=== PATIENT | female | born 1940 | race African-American/Black ===

== ENCOUNTER 2017-08-27 21:39 | Inpatient (IN) ==
[2017-08-27] MEDS ORDERED: ASPIRIN 325 MG TABLET PO STA (23:09)
[2017-08-27] MEDS ORDERED: SODIUM CHLORIDE 0.9% 500 ML IV STA (23:09)
[2017-08-27] MEDS ORDERED: ONDANSETRON 4 MG/2 ML VIAL IV STA (23:09)
[2017-08-28] MEDS ORDERED: ASPIRIN 325 MG TABLET ONE (00:06)
[2017-08-28] MEDS ORDERED: ONDANSETRON 4 MG/2 ML VIAL ONE ×2 (00:06→01:15)
[2017-08-28 00:09] LABS: Basophils % 0.3 % (0.0-0.8); Eosinophils # 0.1 10*3/uL (0.0-0.87); Eosinophils % 0.5 % (0.00-10.9); Hematocrit 31.5 VOL% (35.7-47.0); Hemoglobin 10.9 GM/DL (12.0-16.0); Immature Granulocytes % 3.1 %; Immature Granulocytes Absolute 0.39 #; Lymphocytes # 0.7 10*3/uL (1.4-4.0); Lymphocytes % 5.5 % (21.3-54.2); Mean Corpuscular HGB Conc 34.6 GM/DL (32-36); Mean Corpuscular Hemoglobin 28 PG (27-34); Mean Corpuscular Volume 79.3 FL (87-102); Mean Platelet Volume 11.3 FL (9.6-12.0); Monocytes # 0.3 10*3/uL (0.11-0.8); Monocytes % 2.5 % (1.7-12.7); NRBC # 0.02 10*3/uL; Neutrophils # 11.2 10*3/uL (1.4-7.4); Neutrophils % 88.1 % (38.7-73.9); Platelet Count 314 T/CUMM (130-400); Red Blood Count 3.97 MC/CUMM (3.8-5.5); Red Cell Distribution Width 13.5 % (9.3-17.3); White Blood Count 12.8 T/CUMM (4-12)
[2017-08-28 00:18] LABS: PT Patient Result 10.8 SECS; Partial Thromboplastin Time 30.1 SECS (0-40)
[2017-08-28 00:27] LABS: Ammonia < 10 UMOL/L (11-32)
[2017-08-28 00:31] LABS: Alanine Aminotransferase 35 U/L (13-56); Albumin 1.8 G/DL (3.4-5.0); Alkaline Phosphatase 188 U/L (45-117); Aspartate Amino Transferase 53 U/L (0-37); Blood Urea Nitrogen 56 MG/DL (7-18); Calcium 8.6 MG/DL (8.5-10.1); Glucose 386 MG/DL (74-106); Osmolality,Calculated 295.5 MOS/KG (273-304); Sodium 132 MMOL/L (136-145); Total Protein 5.7 G/DL (6.4-8.3); Troponin I Only < 0.015 NG/ML (0.00-0.045)
[2017-08-28 00:32] LABS: Lactic Acid 2.1 MMOL/L (0.4-2.0)
[2017-08-28] MEDS ORDERED: ONDANSETRON 4 MG/2 ML VIAL IV STA (00:59)
[2017-08-28] MEDS ORDERED: MORPHINE 2 MG/1 ML SYRINGE IV STA ×2 (00:59→09:30)
[2017-08-28] MEDS ORDERED: POTASSIUM CHLORIDE 20 MEQ TABLET PO STA (01:00)
[2017-08-28] MEDS ORDERED: MORPHINE 2 MG/1 ML SYRINGE ONE (01:15)
[2017-08-28] MEDS ORDERED: POTASSIUM CHLORIDE 20 MEQ TABLET PO ONE (01:15)
[2017-08-28 01:52] LABS: Band Neutrophils 45 % (0-10); Eosinophils 1 % (0-10); Lymphocytes 11 % (20-55); Segmented Neutrophils 37 % (50-85); Total Cells Counted 100
[2017-08-28 02:08] LABS: Barbiturates Screen,Urine Negative (Negative); Benzodiazepines Screen,Urine Negative (Negative); Cannabinoid Screen,Urine Negative (Negative); Opiate Screen,Urine Positive (Negative); Phencyclidine Screen,Urine Negative (Negative)
[2017-08-28 02:14] LABS: Apearance,Urine CLOUDY (Clear); Bacteria,Urine Many /HPF (Few); Bilirubin,Urine Negative (Negative); Blood, Urine Negative (Negative); Glucose,Urine (UA) >=500 mg/dL (Negative); Ketones,Urine Negative (Negative); Mucus,Urine Many /LPF (Occasional); Nitrite,Urine Negative (Negative); Protein,Urine Negative; RBC,Urine 2 /HPF (0-4); Squamous Epithelial Cell,Urine Occasional /HPF (0-10); Urine Color Amber (Yellow); Urine Specific Gravity 1.014 (1.001-1.035); WBC,Urine 5 /HPF (0-6)
[2017-08-28] MEDS ORDERED: DEXTROSE 50% 25 GM/50 ML VIAL IV PRN (02:21)
[2017-08-28] MEDS ORDERED: LABETALOL 20 MG/4 ML SYRINGE IV PRN (02:21)
[2017-08-28] MEDS ORDERED: GLUCAGON 1 MG VIAL IM PRN (02:21)
[2017-08-28] MEDS ORDERED: SODIUM CHLORIDE 0.9% IV ONE (04:00)
[2017-08-28] MEDS ORDERED: POTASSIUM CHLORIDE IV ONE (04:00)
[2017-08-28] MEDS: ASPIRIN 325 MG TABLET PO SCH (08:50)
[2017-08-28] MEDS: INSULIN REGULAR 100 UNIT/ML SUBCUT SCH ×4 (08:50→21:04)
[2017-08-28] MEDS: SODIUM CHLORIDE 0.9% 1,000 ML IV SCH ×2 (08:52→19:59)
[2017-08-28] MEDS: ENOXAPARIN 40 MG/0.4 ML SYRINGE SUBCUT SCH (08:52)
[2017-08-28 09:10] LABS: Alanine Aminotransferase 31 U/L (13-56); Albumin 1.6 G/DL (3.4-5.0); Alkaline Phosphatase 178 U/L (45-117); Aspartate Amino Transferase 59 U/L (0-37); Blood Urea Nitrogen 62 MG/DL (7-18); Calcium 8.4 MG/DL (8.5-10.1); Cholesterol 84 MG/DL (50-200); Glucose 342 MG/DL (74-106); HDL Cholesterol < 10 MG/DL (40-60); Osmolality,Calculated 299.2 MOS/KG (273-304); Potassium 3.4 MMOL/L (3.5-5.1); Sodium 134 MMOL/L (136-145); Total Protein 5.3 G/DL (6.4-8.3); Triglycerides 214 MG/DL (2-150); VLDL CHOLESTEROL 42.8 MG/DL
[2017-08-28 10:09] LABS: Basophils % 0.3 % (0.0-0.8); Eosinophils # 0.1 10*3/uL (0.0-0.87); Eosinophils % 0.6 % (0.00-10.9); Hematocrit 31.2 VOL% (35.7-47.0); Hemoglobin 10.7 GM/DL (12.0-16.0); Immature Granulocytes % 3.2 %; Immature Granulocytes Absolute 0.37 #; Lymphocytes # 0.7 10*3/uL (1.4-4.0); Lymphocytes % 6.1 % (21.3-54.2); Mean Corpuscular HGB Conc 34.3 GM/DL (32-36); Mean Corpuscular Hemoglobin 27 PG (27-34); Mean Platelet Volume 11.1 FL (9.6-12.0); Monocytes # 0.3 10*3/uL (0.11-0.8); Monocytes % 2.6 % (1.7-12.7); Neutrophils # 10.2 10*3/uL (1.4-7.4); Neutrophils % 87.2 % (38.7-73.9); Platelet Count 298 T/CUMM (130-400); White Blood Count 11.7 T/CUMM (4-12)
[2017-08-28 10:35] LABS: Eosinophils 2 % (0-10); Hypochromasia 1+; Lymphocytes 6 % (20-55); Myelocytes 1 %; Segmented Neutrophils 77 % (50-85); Total Cells Counted 100
[2017-08-28 10:42] LABS: Band Neutrophils 5 % (0-10)
[2017-08-28] MEDS ORDERED: CYCLOBENZAPRINE 10 MG TABLET PO PRN (15:01)
[2017-08-28] MEDS: SILVER SULFADIAZINE 1% CREAM 25 GM TUBE TOP SCH (16:38)
[2017-08-29] MEDS ORDERED: CYCLOBENZAPRINE 10 MG TABLET PO PRN (07:24)
[2017-08-29] MEDS ORDERED: cefTRIAXone 1,000 MG in SYRINGE 1 EACH IV SCH (07:30)
[2017-08-29] MEDS ORDERED: SODIUM CHLORIDE 0.45% 1,000 ML IV SCH (07:30)
[2017-08-29] MEDS ORDERED: LEVOFLOXACIN INJ 500 MG in PREMIX 1 EACH IV SCH (08:00)
[2017-08-29] MEDS ORDERED: POTASSIUM CHLORIDE INJ 20 MEQ in SODIUM CHLORIDE 0.9% 250 ML IV ONE (08:30)
[2017-08-29] MEDS ORDERED: hydroCHLOROthiazide 25 MG TABLET PO SCH (09:00)
[2017-08-29] MEDS ORDERED: LOSARTAN 50 MG TABLET PO SCH (09:00)
[2017-08-29 09:07] LABS: Folate 8.4 NG/ML (5.4-24.0); Vitamin B12 > 2000 PG/ML (211-911)
[2017-08-29] MEDS: ASPIRIN 325 MG TABLET PO SCH (09:08)
[2017-08-29] MEDS: ENOXAPARIN 40 MG/0.4 ML SYRINGE SUBCUT SCH (09:09)
[2017-08-29] MEDS: INSULIN ASPART PROTAMINE/ASPART 70/30 100 UNIT/ML SUBCUT SCH ×2 (09:10→21:27)
[2017-08-29] MEDS: INSULIN REGULAR 100 UNIT/ML SUBCUT SCH ×4 (09:10→21:27)
[2017-08-29] MEDS: CARVEDILOL 25 MG TABLET PO SCH ×2 (09:15→21:27)
[2017-08-29] MEDS: amLODIPine 5 MG TABLET PO SCH (09:16)
[2017-08-29] MEDS: SILVER SULFADIAZINE 1% CREAM 25 GM TUBE TOP SCH (10:19)
[2017-08-29] MEDS: SODIUM CHLORIDE 0.9% 1,000 ML IV SCH (10:19)
[2017-08-29] MEDS: VANCOMYCIN INJ 1,500 MG in SODIUM CHLORIDE 0.9% 500 ML IV SCH (14:09)
[2017-08-29] MEDS ORDERED: ZINC OXIDE PASTE 113 GM TUBE TOP PRN (14:59)
[2017-08-29] MEDS: ATORVASTATIN 20 MG TABLET PO SCH (21:27)
[2017-08-30 05:38] LABS: Basophils # 0.1 10*3/uL (0.0-0.2); Basophils % 0.6 % (0.0-0.8); Eosinophils % 0.3 % (0.00-10.9); Hematocrit 28.5 VOL% (35.7-47.0); Hemoglobin 9.6 GM/DL (12.0-16.0); Immature Granulocytes % 7.1 %; Immature Granulocytes Absolute 0.81 #; Lymphocytes % 8.8 % (21.3-54.2); Mean Corpuscular HGB Conc 33.7 GM/DL (32-36); Mean Corpuscular Hemoglobin 27 PG (27-34); Mean Corpuscular Volume 78.9 FL (87-102); Mean Platelet Volume 11.3 FL (9.6-12.0); Monocytes # 0.5 10*3/uL (0.11-0.8); Monocytes % 4.4 % (1.7-12.7); NRBC # 0.03 10*3/uL; Neutrophils % 78.8 % (38.7-73.9); Platelet Count 283 T/CUMM (130-400); Red Blood Count 3.61 MC/CUMM (3.8-5.5); Red Cell Distribution Width 13.9 % (9.3-17.3); White Blood Count 11.5 T/CUMM (4-12)
[2017-08-30 06:04] LABS: Band Neutrophils 8 % (0-10); Lymphocytes 6 % (20-55); Metamyelocytes 1 %; Myelocytes 1 %; Segmented Neutrophils 78 % (50-85); Total Cells Counted 100
[2017-08-30 06:05] LABS: Calcium 8.5 MG/DL (8.5-10.1); Hypochromasia 1+; Microcytosis 1+; Osmolality,Calculated 295.1 MOS/KG (273-304); Platelet Estimate Normal; Potassium 3.2 MMOL/L (3.5-5.1); Target Cells Slight
[2017-08-30] MEDS: SODIUM CHLORIDE 0.9% 1,000 ML IV SCH ×2 (06:21→16:56)
[2017-08-30] MEDS: INSULIN ASPART PROTAMINE/ASPART 70/30 100 UNIT/ML SUBCUT SCH ×2 (09:38→22:09)
[2017-08-30] MEDS: INSULIN REGULAR 100 UNIT/ML SUBCUT SCH ×4 (09:38→22:09)
[2017-08-30] MEDS: ENOXAPARIN 40 MG/0.4 ML SYRINGE SUBCUT SCH (09:38)
[2017-08-30] MEDS: amLODIPine 5 MG TABLET PO SCH (09:39)
[2017-08-30] MEDS: ASPIRIN 325 MG TABLET PO SCH (09:39)
[2017-08-30] MEDS: CARVEDILOL 25 MG TABLET PO SCH ×2 (09:39→22:08)
[2017-08-30] MEDS: SILVER SULFADIAZINE 1% CREAM 25 GM TUBE TOP SCH (09:50)
[2017-08-30] MEDS: POTASSIUM CHLORIDE 20 MEQ TABLET PO SCH ×2 (16:58→22:08)
[2017-08-30] MEDS: LEVOFLOXACIN INJ 250 MG in PREMIX 1 EACH IV SCH (17:01)
[2017-08-30] MEDS: RIFAMPIN 300 MG CAPSULE PO SCH (22:08)
[2017-08-30] MEDS: ATORVASTATIN 20 MG TABLET PO SCH (22:08)
[2017-08-31] MEDS: POTASSIUM CHLORIDE 20 MEQ TABLET PO SCH (02:29)
[2017-08-31] MEDS: VANCOMYCIN INJ 1,500 MG in SODIUM CHLORIDE 0.9% 500 ML IV SCH ×2 (02:30→14:23)
[2017-08-31] MEDS ORDERED: POTASSIUM CHLORIDE 20 MEQ TABLET PO SCH (02:30)
[2017-08-31 05:15] LABS: Basophils % 0.3 % (0.0-0.8); Eosinophils # 0.1 10*3/uL (0.0-0.87); Eosinophils % 0.9 % (0.00-10.9); Hematocrit 26.8 VOL% (35.7-47.0); Hemoglobin 9.4 GM/DL (12.0-16.0); Immature Granulocytes % 8.7 %; Lymphocytes # 1.1 10*3/uL (1.4-4.0); Lymphocytes % 8.9 % (21.3-54.2); Mean Corpuscular HGB Conc 35.1 GM/DL (32-36); Mean Corpuscular Hemoglobin 28 PG (27-34); Mean Corpuscular Volume 78.4 FL (87-102); Mean Platelet Volume 10.9 FL (9.6-12.0); Monocytes # 0.4 10*3/uL (0.11-0.8); Monocytes % 3.3 % (1.7-12.7); Neutrophils # 9.9 10*3/uL (1.4-7.4); Neutrophils % 77.9 % (38.7-73.9); Platelet Count 309 T/CUMM (130-400); Red Blood Count 3.42 MC/CUMM (3.8-5.5); Red Cell Distribution Width 14.6 % (9.3-17.3); White Blood Count 12.7 T/CUMM (4-12)
[2017-08-31 05:39] LABS: Band Neutrophils 6 % (0-10); Eosinophils 2 % (0-10); Giant Platelets Few; Hypochromasia 1+; Lymphocytes 10 % (20-55); Ovalocytes Slight; Platelet Estimate Adequate; Segmented Neutrophils 80 % (50-85); Total Cells Counted 100
[2017-08-31 05:40] LABS: Microcytosis Slight
[2017-08-31 05:44] LABS: Calcium 8.6 MG/DL (8.5-10.1); Osmolality,Calculated 298.7 MOS/KG (273-304); Potassium 4.1 MMOL/L (3.5-5.1)
[2017-08-31] MEDS: INSULIN REGULAR 100 UNIT/ML SUBCUT SCH ×4 (08:24→20:52)
[2017-08-31] MEDS ORDERED: MORPHINE 2 MG/1 ML SYRINGE IV ONE (08:42)
[2017-08-31] MEDS: LEVOFLOXACIN INJ 250 MG in PREMIX 1 EACH IV SCH (09:29)
[2017-08-31] MEDS: CARVEDILOL 25 MG TABLET PO SCH ×2 (09:30→20:55)
[2017-08-31] MEDS: SILVER SULFADIAZINE 1% CREAM 25 GM TUBE TOP SCH (09:30)
[2017-08-31] MEDS: amLODIPine 5 MG TABLET PO SCH (09:30)
[2017-08-31] MEDS: ENOXAPARIN 40 MG/0.4 ML SYRINGE SUBCUT SCH (09:30)
[2017-08-31] MEDS: RIFAMPIN 300 MG CAPSULE PO SCH ×2 (09:30→20:55)
[2017-08-31] MEDS: ASPIRIN 325 MG TABLET PO SCH (09:31)
[2017-08-31] MEDS: SODIUM CHLORIDE 0.9% 1,000 ML IV SCH (09:36)
[2017-08-31] MEDS: INSULIN ASPART PROTAMINE/ASPART 70/30 100 UNIT/ML SUBCUT SCH ×2 (09:44→17:28)
[2017-08-31] MEDS: HYDROmorphone 2 MG/1 ML VIAL IV PRN (20:48)
[2017-08-31] MEDS: ATORVASTATIN 20 MG TABLET PO SCH (20:55)
[2017-09-01] MEDS: HYDROmorphone 2 MG/1 ML VIAL IV PRN ×3 (03:27→19:40)
[2017-09-01] MEDS: VANCOMYCIN INJ 1,500 MG in SODIUM CHLORIDE 0.9% 500 ML IV SCH ×2 (03:30→14:03)
[2017-09-01] MEDS: INSULIN REGULAR 100 UNIT/ML SUBCUT SCH ×4 (08:53→20:30)
[2017-09-01] MEDS: INSULIN ASPART PROTAMINE/ASPART 70/30 100 UNIT/ML SUBCUT SCH ×2 (08:54→16:41)
[2017-09-01] MEDS: ENOXAPARIN 40 MG/0.4 ML SYRINGE SUBCUT SCH (08:56)
[2017-09-01] MEDS: LEVOFLOXACIN INJ 250 MG in PREMIX 1 EACH IV SCH (08:56)
[2017-09-01] MEDS: amLODIPine 5 MG TABLET PO SCH (08:56)
[2017-09-01] MEDS: CARVEDILOL 25 MG TABLET PO SCH ×2 (08:56→20:33)
[2017-09-01] MEDS: ASPIRIN 325 MG TABLET PO SCH (08:56)
[2017-09-01] MEDS: RIFAMPIN 300 MG CAPSULE PO SCH ×2 (08:56→20:33)
[2017-09-01] MEDS: SILVER SULFADIAZINE 1% CREAM 25 GM TUBE TOP SCH (08:57)
[2017-09-01] MEDS: SODIUM CHLORIDE 0.9% 1,000 ML IV SCH (12:01)
[2017-09-01] MEDS ORDERED: CALCIUM CARBONATE CHEW 500 MG TABLET PO PRN (13:11)
[2017-09-01] MEDS: PANTOPRAZOLE 40 MG VIAL IV SCH (13:23)
[2017-09-01] MEDS: ATORVASTATIN 20 MG TABLET PO SCH (20:32)
[2017-09-02] MEDS: HYDROmorphone 2 MG/1 ML VIAL IV PRN ×5 (00:36→19:33)
[2017-09-02] MEDS: SODIUM CHLORIDE 0.9% 1,000 ML IV SCH ×2 (01:34)
[2017-09-02 05:51] LABS: Calcium 7.9 MG/DL (8.5-10.1); Osmolality,Calculated 293.7 MOS/KG (273-304); Potassium 4.4 MMOL/L (3.5-5.1)
[2017-09-02] MEDS: INSULIN ASPART PROTAMINE/ASPART 70/30 100 UNIT/ML SUBCUT SCH ×2 (07:41→17:57)
[2017-09-02] MEDS: INSULIN REGULAR 100 UNIT/ML SUBCUT SCH ×3 (07:41→17:56)
[2017-09-02] MEDS: ASPIRIN 325 MG TABLET PO SCH (08:40)
[2017-09-02] MEDS: amLODIPine 5 MG TABLET PO SCH (08:40)
[2017-09-02] MEDS: PANTOPRAZOLE 40 MG VIAL IV SCH (08:40)
[2017-09-02] MEDS: CARVEDILOL 25 MG TABLET PO SCH (08:40)
[2017-09-02] MEDS: LEVOFLOXACIN INJ 250 MG in PREMIX 1 EACH IV SCH (08:41)
[2017-09-02] MEDS: ENOXAPARIN 40 MG/0.4 ML SYRINGE SUBCUT SCH (08:41)
[2017-09-02] MEDS: RIFAMPIN 300 MG CAPSULE PO SCH (08:43)
[2017-09-02] MEDS: SILVER SULFADIAZINE 1% CREAM 25 GM TUBE TOP SCH (11:51)
[2017-09-02] MEDS ORDERED: VANCOMYCIN INJ 1,500 MG in SODIUM CHLORIDE 0.9% 500 ML IV SCH (14:00)
[2017-09-03 00:36] VITALS: BP 172/77
== END 2017-09-02 19:41 | disposition hospice, home (50) | DRG 871 ==
LOC: EDBD → EDUNIT# → N.ED 21:39 → SUATTDRO 08-28 02:21 → N.EDINP 08-28 02:21 → N.4E 08-28 03:04
PROVIDERS: ADMIT Internal Medicine; ATTEND Family Medicine

== ENCOUNTER 2017-09-11 10:32 | Inpatient (IN) ==
[2017-09-11] MEDS ORDERED: DEXTROSE 50% 25 GM/50 ML VIAL IV PRN (20:08)
[2017-09-11] MEDS ORDERED: ACETAMINOPHEN 325 MG TABLET PO PRN (20:08)
[2017-09-11] MEDS ORDERED: GLUCAGON 1 MG VIAL IM PRN (20:08)
[2017-09-11] MEDS: CARVEDILOL 25 MG TABLET PO SCH (21:35)
[2017-09-11] MEDS: ATORVASTATIN 20 MG TABLET PO SCH (21:35)
[2017-09-11] MEDS: cefTRIAXone 2,000 MG in SODIUM CHLORIDE 0.9% 100 ML IV SCH (21:35)
[2017-09-11] MEDS: INSULIN LISPRO 100 UNIT/ML SUBCUT SCH (21:36)
[2017-09-12 05:49] LABS: Basophils % 0.4 % (0.0-0.8); Eosinophils # 0.1 10*3/uL (0.0-0.87); Eosinophils % 1.2 % (0.00-10.9); Hematocrit 24.9 VOL% (35.7-47.0); Hemoglobin 8.3 GM/DL (12.0-16.0); Immature Granulocytes % 0.9 %; Immature Granulocytes Absolute 0.09 #; Lymphocytes # 0.8 10*3/uL (1.4-4.0); Lymphocytes % 7.6 % (21.3-54.2); Mean Corpuscular HGB Conc 33.3 GM/DL (32-36); Mean Corpuscular Hemoglobin 29 PG (27-34); Mean Corpuscular Volume 87.1 FL (87-102); Mean Platelet Volume 9.4 FL (9.6-12.0); Monocytes # 0.6 10*3/uL (0.11-0.8); Neutrophils # 8.6 10*3/uL (1.4-7.4); Neutrophils % 83.9 % (38.7-73.9); Platelet Count 599 T/CUMM (130-400); Red Blood Count 2.86 MC/CUMM (3.8-5.5); Red Cell Distribution Width 14.3 % (9.3-17.3); White Blood Count 10.3 T/CUMM (4-12)
[2017-09-12 06:09] LABS: Eosinophils 3 % (0-10); Hypochromasia 1+; Lymphocytes 5 % (20-55); Microcytosis Slight; Platelet Estimate Increased; Segmented Neutrophils 87 % (50-85); Total Cells Counted 100
[2017-09-12 06:19] LABS: Osmolality,Calculated 273.1 MOS/KG (273-304); Potassium 3.8 MMOL/L (3.5-5.1)
[2017-09-12] MEDS ORDERED: MAGNESIUM SULF RIDER 2 GM in PREMIX 1 EACH IV ONE (07:59)
[2017-09-12] MEDS ORDERED: cefTRIAXone 2,000 MG VIAL IV SCH (09:00)
[2017-09-12] MEDS: CARVEDILOL 25 MG TABLET PO SCH ×3 (09:39→18:24)
[2017-09-12] MEDS: INSULIN GLARGINE 100 UNIT/ML SUBCUT SCH (09:39)
[2017-09-12] MEDS: amLODIPine 5 MG TABLET PO SCH (09:39)
[2017-09-12] MEDS: LOSARTAN 50 MG TABLET PO SCH (09:40)
[2017-09-12] MEDS: AZITHROMYCIN 250 MG TABLET PO SCH (09:41)
[2017-09-12] MEDS: RIFAMPIN 300 MG CAPSULE PO SCH (09:41)
[2017-09-12] MEDS: ASPIRIN 325 MG TABLET PO SCH (09:43)
[2017-09-12] MEDS: INSULIN LISPRO 100 UNIT/ML SUBCUT SCH ×2 (12:19→22:11)
[2017-09-12] MEDS: NYSTATIN 500,000 UNIT/5 ML UDCUP SWISH/SWAL SCH ×4 (12:36→22:21)
[2017-09-12] MEDS: SODIUM CHLORIDE 0.9% 1,000 ML IV SCH (18:24)
[2017-09-12 18:39] LABS: Basophils # 0.1 10*3/uL (0.0-0.2); Basophils % 0.5 % (0.0-0.8); Eosinophils # 0.1 10*3/uL (0.0-0.87); Eosinophils % 1.1 % (0.00-10.9); Hemoglobin 7.8 GM/DL (12.0-16.0); Immature Granulocytes % 0.7 %; Immature Granulocytes Absolute 0.07 #; Lymphocytes # 0.9 10*3/uL (1.4-4.0); Lymphocytes % 8.2 % (21.3-54.2); Mean Corpuscular HGB Conc 32.5 GM/DL (32-36); Mean Corpuscular Hemoglobin 29 PG (27-34); Mean Corpuscular Volume 87.9 FL (87-102); Mean Platelet Volume 9.2 FL (9.6-12.0); Monocytes # 0.5 10*3/uL (0.11-0.8); Monocytes % 4.5 % (1.7-12.7); Neutrophils # 8.9 10*3/uL (1.4-7.4); Platelet Count 562 T/CUMM (130-400); Red Blood Count 2.73 MC/CUMM (3.8-5.5); Red Cell Distribution Width 14.6 % (9.3-17.3); White Blood Count 10.4 T/CUMM (4-12)
[2017-09-12 18:54] LABS: INR 1.3; PT Patient Result 13.9 SECS; Partial Thromboplastin Time 39.3 SECS (0-40)
[2017-09-12 18:56] LABS: Albumin 1.1 G/DL (3.4-5.0); Bilirubin,Total 0.5 MG/DL (0.2-1.0); Osmolality,Calculated 270.4 MOS/KG (273-304); Potassium 3.8 MMOL/L (3.5-5.1); Total Protein 5.4 G/DL (6.4-8.3)
[2017-09-12] MEDS: COLLAGENASE OINT 30 GM TUBE TOP SCH (19:22)
[2017-09-12] MEDS: cefTRIAXone 2,000 MG in SODIUM CHLORIDE 0.9% 100 ML IV SCH (22:14)
[2017-09-12] MEDS: ATORVASTATIN 20 MG TABLET PO SCH (22:17)
[2017-09-13 06:43] LABS: Basophils % 0.4 % (0.0-0.8); Eosinophils # 0.3 10*3/uL (0.0-0.87); Eosinophils % 2.7 % (0.00-10.9); Hematocrit 23.2 VOL% (35.7-47.0); Immature Granulocytes % 0.9 %; Immature Granulocytes Absolute 0.08 #; Lymphocytes # 0.8 10*3/uL (1.4-4.0); Mean Corpuscular HGB Conc 34.5 GM/DL (32-36); Mean Corpuscular Hemoglobin 29 PG (27-34); Mean Platelet Volume 9.6 FL (9.6-12.0); Monocytes # 0.5 10*3/uL (0.11-0.8); Monocytes % 5.4 % (1.7-12.7); NRBC # 0.02 10*3/uL; Neutrophils # 7.5 10*3/uL (1.4-7.4); Neutrophils % 81.6 % (38.7-73.9); Platelet Count 549 T/CUMM (130-400); Red Blood Count 2.73 MC/CUMM (3.8-5.5); Red Cell Distribution Width 14.4 % (9.3-17.3); White Blood Count 9.2 T/CUMM (4-12)
[2017-09-13 07:10] LABS: Calcium 7.9 MG/DL (8.5-10.1); Osmolality,Calculated 270.1 MOS/KG (273-304); Potassium 3.9 MMOL/L (3.5-5.1)
[2017-09-13 08:12] LABS: Band Neutrophils 5 % (0-10); Eosinophils 1 % (0-10); Hypochromasia 2+; Lymphocytes 5 % (20-55); Platelet Estimate Increased; Segmented Neutrophils 87 % (50-85); Total Cells Counted 100
[2017-09-13] MEDS: CARVEDILOL 25 MG TABLET PO SCH ×2 (09:44→16:49)
[2017-09-13] MEDS: LOSARTAN 50 MG TABLET PO SCH (09:44)
[2017-09-13] MEDS: RIFAMPIN 300 MG CAPSULE PO SCH (09:44)
[2017-09-13] MEDS: AZITHROMYCIN 250 MG TABLET PO SCH (09:44)
[2017-09-13] MEDS: ASPIRIN 325 MG TABLET PO SCH (09:44)
[2017-09-13] MEDS: INSULIN LISPRO 100 UNIT/ML SUBCUT SCH ×2 (09:45→21:07)
[2017-09-13] MEDS: INSULIN GLARGINE 100 UNIT/ML SUBCUT SCH (09:45)
[2017-09-13] MEDS: amLODIPine 5 MG TABLET PO SCH (09:45)
[2017-09-13] MEDS: NYSTATIN 500,000 UNIT/5 ML UDCUP SWISH/SWAL SCH ×4 (09:45→21:07)
[2017-09-13] MEDS: COLLAGENASE OINT 30 GM TUBE TOP SCH (09:49)
[2017-09-13] MEDS ORDERED: SKIN HEALING OINT (AQUAPHOR) 50 GM TUBE TOP PRN (11:51)
[2017-09-13] MEDS: SODIUM CHLORIDE 0.9% 1,000 ML IV SCH (17:19)
[2017-09-13] MEDS: cefTRIAXone 2,000 MG in SODIUM CHLORIDE 0.9% 100 ML IV SCH (21:06)
[2017-09-13] MEDS: ATORVASTATIN 20 MG TABLET PO SCH (21:11)
[2017-09-14] MEDS: INSULIN LISPRO 100 UNIT/ML SUBCUT SCH ×2 (09:12→21:18)
[2017-09-14] MEDS: ASPIRIN 325 MG TABLET PO SCH (09:18)
[2017-09-14] MEDS: INSULIN GLARGINE 100 UNIT/ML SUBCUT SCH (09:19)
[2017-09-14] MEDS: amLODIPine 5 MG TABLET PO SCH (09:19)
[2017-09-14] MEDS: AZITHROMYCIN 250 MG TABLET PO SCH (09:19)
[2017-09-14] MEDS: LOSARTAN 50 MG TABLET PO SCH (09:19)
[2017-09-14] MEDS: RIFAMPIN 300 MG CAPSULE PO SCH (09:19)
[2017-09-14] MEDS: NYSTATIN 500,000 UNIT/5 ML UDCUP SWISH/SWAL SCH ×4 (09:20→20:51)
[2017-09-14] MEDS: CARVEDILOL 25 MG TABLET PO SCH ×2 (09:20→17:19)
[2017-09-14] MEDS ORDERED: FLUTICASONE 50 MCG NASAL SPRAY 16 GM BOTTLE BOTH NARES SCH (12:00)
[2017-09-14] MEDS: COLLAGENASE OINT 30 GM TUBE TOP SCH (16:20)
[2017-09-14] MEDS: SODIUM CHLORIDE 0.9% 1,000 ML IV SCH (17:18)
[2017-09-14] MEDS: ATORVASTATIN 20 MG TABLET PO SCH (20:52)
[2017-09-14] MEDS: cefTRIAXone 2,000 MG in SODIUM CHLORIDE 0.9% 100 ML IV SCH (20:52)
[2017-09-15] MEDS: NYSTATIN 500,000 UNIT/5 ML UDCUP SWISH/SWAL SCH ×4 (08:56→20:26)
[2017-09-15] MEDS: RIFAMPIN 300 MG CAPSULE PO SCH (08:58)
[2017-09-15] MEDS: AZITHROMYCIN 250 MG TABLET PO SCH (08:58)
[2017-09-15] MEDS: LOSARTAN 50 MG TABLET PO SCH (08:58)
[2017-09-15] MEDS: ASPIRIN 325 MG TABLET PO SCH (08:59)
[2017-09-15] MEDS: CARVEDILOL 25 MG TABLET PO SCH ×2 (08:59→17:24)
[2017-09-15] MEDS: INSULIN GLARGINE 100 UNIT/ML SUBCUT SCH (08:59)
[2017-09-15] MEDS: amLODIPine 10 MG TABLET PO SCH (09:07)
[2017-09-15] MEDS: FUROSEMIDE 40 MG TABLET PO SCH (09:07)
[2017-09-15] MEDS: INSULIN LISPRO 100 UNIT/ML SUBCUT SCH ×2 (09:07→20:30)
[2017-09-15] MEDS: COLLAGENASE OINT 30 GM TUBE TOP SCH (12:48)
[2017-09-15] MEDS: ATORVASTATIN 20 MG TABLET PO SCH (20:26)
[2017-09-15] MEDS: ONDANSETRON 4 MG/2 ML VIAL IV PRN (20:29)
[2017-09-15] MEDS: cefTRIAXone 2,000 MG in SODIUM CHLORIDE 0.9% 100 ML IV SCH (20:30)
[2017-09-16 06:17] LABS: Hematocrit 24.9 VOL% (35.7-47.0); Hemoglobin 7.9 GM/DL (12.0-16.0); Mean Corpuscular HGB Conc 31.7 GM/DL (32-36); Mean Corpuscular Hemoglobin 28 PG (27-34); Mean Corpuscular Volume 87.7 FL (87-102); Red Blood Count 2.84 MC/CUMM (3.8-5.5); Red Cell Distribution Width 14.5 % (9.3-17.3); White Blood Count 9.6 T/CUMM (4-12)
[2017-09-16 06:18] LABS: Basophils # 0.1 10*3/uL (0.0-0.2); Basophils % 0.6 % (0.0-0.8); Eosinophils # 0.3 10*3/uL (0.0-0.87); Eosinophils % 3.3 % (0.00-10.9); Immature Granulocytes % 1.4 %; Immature Granulocytes Absolute 0.13 #; Lymphocytes % 10.2 % (21.3-54.2); Mean Platelet Volume 9.5 FL (9.6-12.0); Monocytes # 0.6 10*3/uL (0.11-0.8); Monocytes % 6.7 % (1.7-12.7); NRBC # 0.02 10*3/uL; Neutrophils # 7.4 10*3/uL (1.4-7.4); Neutrophils % 77.8 % (38.7-73.9); Platelet Count 581 T/CUMM (130-400)
[2017-09-16 06:48] LABS: Albumin 1.1 G/DL (3.4-5.0); Bilirubin,Total 0.4 MG/DL (0.2-1.0); Calcium 7.7 MG/DL (8.5-10.1); Osmolality,Calculated 271.8 MOS/KG (273-304); Total Protein 4.7 G/DL (6.4-8.3)
[2017-09-16] MEDS: LOSARTAN 50 MG TABLET PO SCH (08:26)
[2017-09-16] MEDS: AZITHROMYCIN 250 MG TABLET PO SCH (08:26)
[2017-09-16] MEDS: FUROSEMIDE 40 MG TABLET PO SCH (08:26)
[2017-09-16] MEDS: RIFAMPIN 300 MG CAPSULE PO SCH (08:26)
[2017-09-16] MEDS: ASPIRIN 325 MG TABLET PO SCH (08:26)
[2017-09-16] MEDS: amLODIPine 10 MG TABLET PO SCH (08:26)
[2017-09-16] MEDS: CARVEDILOL 25 MG TABLET PO SCH ×2 (08:26→18:35)
[2017-09-16] MEDS: NYSTATIN 500,000 UNIT/5 ML UDCUP SWISH/SWAL SCH ×4 (08:27→20:48)
[2017-09-16] MEDS: INSULIN GLARGINE 100 UNIT/ML SUBCUT SCH (08:28)
[2017-09-16] MEDS: INSULIN LISPRO 100 UNIT/ML SUBCUT SCH ×2 (08:28→20:48)
[2017-09-16] MEDS: ONDANSETRON 4 MG/2 ML VIAL IV PRN (11:28)
[2017-09-16] MEDS: COLLAGENASE OINT 30 GM TUBE TOP SCH (18:05)
[2017-09-16] MEDS: ATORVASTATIN 20 MG TABLET PO SCH (20:48)
[2017-09-16] MEDS: cefTRIAXone 2,000 MG in SODIUM CHLORIDE 0.9% 100 ML IV SCH (20:48)
[2017-09-17] MEDS: ONDANSETRON 4 MG/2 ML VIAL IV PRN ×2 (04:01→10:10)
[2017-09-17] MEDS: AZITHROMYCIN 250 MG TABLET PO SCH (08:09)
[2017-09-17] MEDS: LOSARTAN 50 MG TABLET PO SCH (08:09)
[2017-09-17] MEDS: amLODIPine 10 MG TABLET PO SCH (08:10)
[2017-09-17] MEDS: CARVEDILOL 25 MG TABLET PO SCH ×2 (08:10→16:18)
[2017-09-17] MEDS: RIFAMPIN 300 MG CAPSULE PO SCH (08:10)
[2017-09-17] MEDS: INSULIN GLARGINE 100 UNIT/ML SUBCUT SCH (08:14)
[2017-09-17] MEDS: NYSTATIN 500,000 UNIT/5 ML UDCUP SWISH/SWAL SCH ×4 (08:15→21:25)
[2017-09-17] MEDS: INSULIN LISPRO 100 UNIT/ML SUBCUT SCH ×2 (08:21→21:22)
[2017-09-17] MEDS: ASPIRIN CHEW 81 MG TABLET PO SCH (09:46)
[2017-09-17] MEDS: FUROSEMIDE 40 MG TABLET PO SCH (09:46)
[2017-09-17] MEDS: COLLAGENASE OINT 30 GM TUBE TOP SCH (14:05)
[2017-09-17] MEDS ORDERED: FUROSEMIDE 40 MG/4 ML VIAL IV ONE (17:38)
[2017-09-17] MEDS: cefTRIAXone 2,000 MG in SODIUM CHLORIDE 0.9% 100 ML IV SCH (21:18)
[2017-09-17] MEDS: ATORVASTATIN 20 MG TABLET PO SCH (21:24)
[2017-09-18 06:57] LABS: Basophils # 0.1 10*3/uL (0.0-0.2); Basophils % 0.6 % (0.0-0.8); Eosinophils # 0.2 10*3/uL (0.0-0.87); Eosinophils % 1.8 % (0.00-10.9); Hematocrit 25.7 VOL% (35.7-47.0); Hemoglobin 8.4 GM/DL (12.0-16.0); Immature Granulocytes % 2.2 %; Immature Granulocytes Absolute 0.25 #; Lymphocytes # 1.1 10*3/uL (1.4-4.0); Mean Corpuscular HGB Conc 32.7 GM/DL (32-36); Mean Corpuscular Hemoglobin 29 PG (27-34); Mean Corpuscular Volume 87.7 FL (87-102); Mean Platelet Volume 9.1 FL (9.6-12.0); Monocytes # 0.8 10*3/uL (0.11-0.8); Monocytes % 6.7 % (1.7-12.7); Neutrophils # 8.8 10*3/uL (1.4-7.4); Neutrophils % 78.7 % (38.7-73.9); Platelet Count 536 T/CUMM (130-400); Red Blood Count 2.93 MC/CUMM (3.8-5.5); Red Cell Distribution Width 14.5 % (9.3-17.3); White Blood Count 11.2 T/CUMM (4-12)
[2017-09-18 07:31] LABS: Calcium 7.7 MG/DL (8.5-10.1)
[2017-09-18] MEDS: LOSARTAN 50 MG TABLET PO SCH (09:22)
[2017-09-18] MEDS: RIFAMPIN 300 MG CAPSULE PO SCH (09:22)
[2017-09-18] MEDS: AZITHROMYCIN 250 MG TABLET PO SCH (09:22)
[2017-09-18] MEDS: amLODIPine 10 MG TABLET PO SCH (09:22)
[2017-09-18] MEDS: ASPIRIN CHEW 81 MG TABLET PO SCH (09:22)
[2017-09-18] MEDS: CARVEDILOL 25 MG TABLET PO SCH ×2 (09:22→17:09)
[2017-09-18] MEDS: FUROSEMIDE 40 MG TABLET PO SCH (09:23)
[2017-09-18] MEDS: NYSTATIN 500,000 UNIT/5 ML UDCUP SWISH/SWAL SCH ×4 (09:23→21:17)
[2017-09-18] MEDS: COLLAGENASE OINT 30 GM TUBE TOP SCH (09:23)
[2017-09-18] MEDS: INSULIN GLARGINE 100 UNIT/ML SUBCUT SCH (09:23)
[2017-09-18] MEDS: INSULIN LISPRO 100 UNIT/ML SUBCUT SCH ×2 (09:23→21:18)
[2017-09-18] MEDS: ATORVASTATIN 20 MG TABLET PO SCH (21:14)
[2017-09-18] MEDS: cefTRIAXone 2,000 MG in SODIUM CHLORIDE 0.9% 100 ML IV SCH (21:20)
[2017-09-19] MEDS: INSULIN LISPRO 100 UNIT/ML SUBCUT SCH ×2 (10:03→10:12)
[2017-09-19] MEDS: LOSARTAN 50 MG TABLET PO SCH (10:10)
[2017-09-19] MEDS: ASPIRIN CHEW 81 MG TABLET PO SCH (10:10)
[2017-09-19] MEDS: AZITHROMYCIN 250 MG TABLET PO SCH (10:10)
[2017-09-19] MEDS: amLODIPine 10 MG TABLET PO SCH (10:10)
[2017-09-19] MEDS: RIFAMPIN 300 MG CAPSULE PO SCH (10:10)
[2017-09-19] MEDS: CARVEDILOL 25 MG TABLET PO SCH ×2 (10:11→18:39)
[2017-09-19] MEDS: FUROSEMIDE 40 MG TABLET PO SCH (10:11)
[2017-09-19] MEDS: INSULIN GLARGINE 100 UNIT/ML SUBCUT SCH (10:11)
[2017-09-19] MEDS: NYSTATIN 500,000 UNIT/5 ML UDCUP SWISH/SWAL SCH ×3 (10:12→18:39)
[2017-09-19] MEDS: COLLAGENASE OINT 30 GM TUBE TOP SCH (10:30)
[2017-09-19 17:20] VITALS: BP 147/64
== END 2017-09-19 17:15 | disposition swing bed (61) | DRG 94 ==
LOC: SUATTDRO 18:39 → N.5E 18:39
PROVIDERS: ADMIT Internal Medicine; ATTEND Family Medicine

== ENCOUNTER 2022-07-03 03:33 | Inpatient (IN) ==
[2022-07-03] MEDS ORDERED: PANTOPRAZOLE 40 MG VIAL IV STA (03:51)
[2022-07-03] MEDS ORDERED: ONDANSETRON 4 MG/2 ML VIAL IV STA (03:51)
[2022-07-03] MEDS ORDERED: SODIUM CHLORIDE 0.9% 1,000 ML IV STA (03:51)
[2022-07-03 04:01] LABS: Basophils # 0.1 10*3/uL (0.0-0.2); Basophils % 0.3 % (0.0-0.8); Eosinophils # 0.1 10*3/uL (0.0-0.87); Eosinophils % 0.9 % (0.00-10.9); Hematocrit 20.3 VOL% (35.7-47.0); Immature Granulocytes % 0.8 %; Immature Granulocytes Absolute 0.12 #; Lymphocytes # 2.3 10*3/uL (1.4-4.0); Lymphocytes % 15.5 % (21.3-54.2); Mean Corpuscular HGB Conc 31.5 GM/DL (32-36); Mean Corpuscular Volume 87.1 FL (87-102); Mean Platelet Volume 10.9 FL (9.6-12.0); Monocytes # 0.7 10*3/uL (0.11-0.8); Monocytes % 4.7 % (1.7-12.7); Neutrophils % 77.8 % (38.7-73.9); Platelet Count 231 T/CUMM (130-400); Red Blood Count 2.33 MC/CUMM (3.8-5.5); Red Cell Distribution Width 15.6 % (9.3-17.3); White Blood Count 14.8 T/CUMM (4-12)
[2022-07-03 04:02] LABS: Hemoglobin 6.4 GM/DL (12.0-16.0)
[2022-07-03] MEDS ORDERED: SODIUM CHLORIDE 0.9% 1,000 ML IV PRN (04:03)
[2022-07-03 04:11] LABS: PT Patient Result 11.4 SECS (10.1-12.1); Partial Thromboplastin Time 24.5 SECS (23.7-32.9)
[2022-07-03 04:24] LABS: Alanine Aminotransferase 9 U/L (13-56); Albumin 2.7 G/DL (3.4-5.0); Alkaline Phosphatase 42 U/L (45-117); Aspartate Amino Transferase 5 U/L (0-37); Bilirubin,Total < 0.39 MG/DL (0.20-1.00); Blood Urea Nitrogen 39 MG/DL (7-18); Calcium 8.2 MG/DL (8.5-10.1); Carbon Dioxide 22 MMOL/L (21-32); Chloride 107 MMOL/L (98-107); Glucose 332 MG/DL (74-106); Osmolality,Calculated 291.1 MOS/KG (273-304); Potassium 4.8 MMOL/L (3.5-5.1); Sodium 135 MMOL/L (136-145)
[2022-07-03] MEDS ORDERED: ONDANSETRON 4 MG/2 ML VIAL IV PRN (05:57)
[2022-07-03 07:18] LABS: Bilirubin,Urine Negative (Negative); Blood, Urine Trace mg/dL (Negative); Glucose,Urine (UA) Negative (Negative); Hyaline Casts,Urine 2 /LPF (0-3); Ketones,Urine Negative (Negative); Nitrite,Urine Negative (Negative); Protein,Urine Negative (Negative); RBC,Urine 1 /HPF (0-4); Squamous Epithelial Cell,Urine Occasional /HPF (0-10); Urine Appearance Clear (Clear); Urine Color Yellow (Yellow); Urine Urobilinogen 0.2 eU/dL (<2.0)
[2022-07-03] MEDS: PANTOPRAZOLE 40 MG VIAL IV SCH ×2 (10:55→21:40)
[2022-07-03 14:12] LABS: Hematocrit 22.9 VOL% (35.7-47.0); Hemoglobin 7.4 GM/DL (12.0-16.0)
[2022-07-03] MEDS: ACETAMINOPHEN 325 MG TABLET PO PRN (21:45)
[2022-07-04] MEDS ORDERED: MORPHINE 2 MG/1 ML SYRINGE IV ONE
[2022-07-04 05:02] LABS: Basophils # 0.1 10*3/uL (0.0-0.2); Basophils % 0.4 % (0.0-0.8); Eosinophils # 0.1 10*3/uL (0.0-0.87); Eosinophils % 0.5 % (0.00-10.9); Hematocrit 19.8 VOL% (35.7-47.0); Immature Granulocytes % 1.6 %; Immature Granulocytes Absolute 0.23 #; Lymphocytes # 2.2 10*3/uL (1.4-4.0); Lymphocytes % 15.5 % (21.3-54.2); Mean Corpuscular HGB Conc 31.8 GM/DL (32-36); Mean Corpuscular Volume 88.4 FL (87-102); Mean Platelet Volume 10.4 FL (9.6-12.0); Monocytes # 0.9 10*3/uL (0.11-0.8); Monocytes % 6.2 % (1.7-12.7); NRBC # 0.06 10*3/uL; Neutrophils % 75.8 % (38.7-73.9); Platelet Count 194 T/CUMM (130-400); Red Blood Count 2.24 MC/CUMM (3.8-5.5); Red Cell Distribution Width 14.9 % (9.3-17.3); White Blood Count 14.3 T/CUMM (4-12)
[2022-07-04 05:10] LABS: Hemoglobin 6.3 GM/DL (12.0-16.0)
[2022-07-04 05:11] LABS: PT Patient Result 11.3 SECS (10.1-12.1)
[2022-07-04] MEDS ORDERED: SODIUM CHLORIDE 0.9% 1,000 ML IV PRN (05:15)
[2022-07-04 05:38] LABS: Alanine Aminotransferase 9 U/L (13-56); Albumin 2.4 G/DL (3.4-5.0); Alkaline Phosphatase 39 U/L (45-117); Aspartate Amino Transferase 5 U/L (0-37); Bilirubin,Total < 0.39 MG/DL (0.20-1.00); Blood Urea Nitrogen 37 MG/DL (7-18); Calcium 7.6 MG/DL (8.5-10.1); Carbon Dioxide 21 MMOL/L (21-32); Chloride 109 MMOL/L (98-107); Glucose 310 MG/DL (74-106); Potassium 4.7 MMOL/L (3.5-5.1); Sodium 136 MMOL/L (136-145); Total Protein 4.7 G/DL (6.4-8.2)
[2022-07-04] MEDS ORDERED: propofoL 200 MG/20 ML VIAL IV ONE (09:41)
[2022-07-04] MEDS ORDERED: ETOMIDATE 20 MG/10 ML VIAL IV ONE (09:41)
[2022-07-04] MEDS ORDERED: LIDOCAINE 2% 5 ML VIAL ONE (09:41)
[2022-07-04] MEDS ORDERED: BISACODYL 5 MG TABLET PO ONE (12:00)
[2022-07-04] MEDS: PANTOPRAZOLE 40 MG VIAL IV SCH ×2 (12:00→23:29)
[2022-07-04 15:34] LABS: Basophils # 0.1 10*3/uL (0.0-0.2); Basophils % 0.4 % (0.0-0.8); Eosinophils # 0.2 10*3/uL (0.0-0.87); Eosinophils % 1.1 % (0.00-10.9); Hematocrit 23.3 VOL% (35.7-47.0); Hemoglobin 7.5 GM/DL (12.0-16.0); Immature Granulocytes Absolute 0.29 #; Lymphocytes # 2.4 10*3/uL (1.4-4.0); Lymphocytes % 16.1 % (21.3-54.2); Mean Corpuscular HGB Conc 32.2 GM/DL (32-36); Mean Platelet Volume 10.6 FL (9.6-12.0); Monocytes # 1.1 10*3/uL (0.11-0.8); Monocytes % 7.4 % (1.7-12.7); NRBC # 0.12 10*3/uL; Platelet Count 191 T/CUMM (130-400); Red Blood Count 2.59 MC/CUMM (3.8-5.5); White Blood Count 14.7 T/CUMM (4-12)
[2022-07-04] MEDS: LOSARTAN 50 MG TABLET PO SCH (17:30)
[2022-07-04] MEDS: INSULIN LISPRO 100 UNIT/ML SUBCUT SCH ×2 (17:30→22:11)
[2022-07-04] MEDS ORDERED: POLYETHYLENE GLYCOL POWDER 255 GM BOTTLE PO ONE (18:00)
[2022-07-04] MEDS: ATORVASTATIN 20 MG TABLET PO SCH (22:10)
[2022-07-04] MEDS: carvediloL 25 MG TABLET PO SCH (22:10)
[2022-07-05 04:55] LABS: Basophils % 0.2 % (0.0-0.8); Eosinophils # 0.1 10*3/uL (0.0-0.87); Eosinophils % 0.4 % (0.00-10.9); Hemoglobin 6.5 GM/DL (12.0-16.0); Immature Granulocytes % 1.4 %; Immature Granulocytes Absolute 0.21 #; Lymphocytes # 1.8 10*3/uL (1.4-4.0); Lymphocytes % 12.1 % (21.3-54.2); Mean Corpuscular Volume 91.7 FL (87-102); Mean Platelet Volume 12.4 FL (9.6-12.0); Monocytes % 6.7 % (1.7-12.7); NRBC # 0.19 10*3/uL; Neutrophils % 79.2 % (38.7-73.9); Platelet Count 107 T/CUMM (130-400); Red Blood Count 2.29 MC/CUMM (3.8-5.5); Red Cell Distribution Width 15.7 % (9.3-17.3); White Blood Count 14.8 T/CUMM (4-12)
[2022-07-05] MEDS ORDERED: SODIUM CHLORIDE 0.9% 1,000 ML IV PRN ×2 (05:08→08:14)
[2022-07-05 05:24] LABS: Calcium 7.6 MG/DL (8.5-10.1); Osmolality,Calculated 294.1 MOS/KG (273-304); Potassium 4.2 MMOL/L (3.5-5.1)
[2022-07-05] MEDS: INSULIN LISPRO 100 UNIT/ML SUBCUT SCH ×4 (08:45→22:23)
[2022-07-05] MEDS ORDERED: LIDOCAINE 2% 5 ML VIAL ONE (10:06)
[2022-07-05] MEDS ORDERED: ETOMIDATE 20 MG/10 ML VIAL IV ONE (10:06)
[2022-07-05] MEDS ORDERED: propofoL 200 MG/20 ML VIAL IV ONE (10:06)
[2022-07-05] MEDS: LOSARTAN 50 MG TABLET PO SCH (11:28)
[2022-07-05] MEDS: carvediloL 25 MG TABLET PO SCH ×2 (11:28→22:23)
[2022-07-05] MEDS: PANTOPRAZOLE 40 MG VIAL IV SCH ×2 (11:28→22:23)
[2022-07-05] MEDS ORDERED: GLUCAGON 1 MG VIAL IM PRN (15:59)
[2022-07-05] MEDS ORDERED: DEXTROSE 10% 250 ML BAG IV PRN (15:59)
[2022-07-05] MEDS: SODIUM CHLORIDE 0.9% 1,000 ML IV SCH (17:00)
[2022-07-05] MEDS: cefTRIAXone 2,000 MG in SODIUM CHLORIDE 0.9% 100 ML IV SCH (18:20)
[2022-07-05] MEDS: metroNIDAZOLE INJ 500 MG/100 ML PREMIX IV SCH (19:02)
[2022-07-05] MEDS: ATORVASTATIN 20 MG TABLET PO SCH (22:23)
[2022-07-06] MEDS: metroNIDAZOLE INJ 500 MG/100 ML PREMIX IV SCH ×3 (00:11→18:21)
[2022-07-06 04:45] LABS: Basophils # 0.1 10*3/uL (0.0-0.2); Basophils % 0.5 % (0.0-0.8); Eosinophils # 0.3 10*3/uL (0.0-0.87); Eosinophils % 2.3 % (0.00-10.9); Hematocrit 26.5 VOL% (35.7-47.0); Hemoglobin 8.5 GM/DL (12.0-16.0); Immature Granulocytes % 0.9 %; Lymphocytes # 1.9 10*3/uL (1.4-4.0); Lymphocytes % 17.9 % (21.3-54.2); Mean Corpuscular HGB Conc 32.1 GM/DL (32-36); Mean Corpuscular Volume 91.4 FL (87-102); Mean Platelet Volume 10.5 FL (9.6-12.0); Monocytes # 0.9 10*3/uL (0.11-0.8); Monocytes % 8.2 % (1.7-12.7); NRBC # 0.11 10*3/uL; Neutrophils % 70.2 % (38.7-73.9); Platelet Count 178 T/CUMM (130-400); White Blood Count 10.7 T/CUMM (4-12)
[2022-07-06 05:05] LABS: Calcium 7.5 MG/DL (8.5-10.1); Potassium 3.9 MMOL/L (3.5-5.1)
[2022-07-06] MEDS: INSULIN LISPRO 100 UNIT/ML SUBCUT SCH ×4 (08:00→21:42)
[2022-07-06] MEDS: carvediloL 25 MG TABLET PO SCH ×2 (10:02→21:41)
[2022-07-06] MEDS: PANTOPRAZOLE 40 MG VIAL IV SCH ×2 (10:07→21:42)
[2022-07-06] MEDS: LOSARTAN 50 MG TABLET PO SCH (10:08)
[2022-07-06] MEDS: SODIUM CHLORIDE 0.9% 1,000 ML IV SCH ×2 (11:23→20:07)
[2022-07-06] MEDS: cefTRIAXone 2,000 MG in SODIUM CHLORIDE 0.9% 100 ML IV SCH (17:00)
[2022-07-06] MEDS: ATORVASTATIN 20 MG TABLET PO SCH (21:41)
[2022-07-07] MEDS: metroNIDAZOLE INJ 500 MG/100 ML PREMIX IV SCH ×2 (01:35→09:59)
[2022-07-07] MEDS: SODIUM CHLORIDE 0.9% 1,000 ML IV SCH (05:48)
[2022-07-07 06:16] LABS: Basophils % 0.3 % (0.0-0.8); Eosinophils # 0.3 10*3/uL (0.0-0.87); Eosinophils % 2.5 % (0.00-10.9); Hemoglobin 8.4 GM/DL (12.0-16.0); Immature Granulocytes % 0.9 %; Lymphocytes # 1.4 10*3/uL (1.4-4.0); Lymphocytes % 13.3 % (21.3-54.2); Mean Corpuscular HGB Conc 32.3 GM/DL (32-36); Mean Corpuscular Volume 92.2 FL (87-102); Mean Platelet Volume 10.9 FL (9.6-12.0); Monocytes # 0.8 10*3/uL (0.11-0.8); Monocytes % 7.5 % (1.7-12.7); NRBC # 0.02 10*3/uL; Neutrophils % 75.5 % (38.7-73.9); Platelet Count 211 T/CUMM (130-400); Red Blood Count 2.82 MC/CUMM (3.8-5.5); Red Cell Distribution Width 16.3 % (9.3-17.3); White Blood Count 10.7 T/CUMM (4-12)
[2022-07-07 06:34] LABS: Calcium 8.2 MG/DL (8.5-10.1)
[2022-07-07] MEDS: LOSARTAN 50 MG TABLET PO SCH (09:58)
[2022-07-07] MEDS: carvediloL 25 MG TABLET PO SCH ×2 (09:58→21:01)
[2022-07-07] MEDS: PANTOPRAZOLE 40 MG VIAL IV SCH ×2 (09:59→21:02)
[2022-07-07] MEDS: INSULIN LISPRO 100 UNIT/ML SUBCUT SCH ×4 (09:59→21:02)
[2022-07-07] MEDS ORDERED: MAGNESIUM SULF RIDER 2 GM/50 ML PREMIX IV ONE (11:17)
[2022-07-07] MEDS: cefTRIAXone 2,000 MG in SODIUM CHLORIDE 0.9% 100 ML IV SCH (17:05)
[2022-07-07] MEDS: ATORVASTATIN 20 MG TABLET PO SCH (21:01)
[2022-07-08] MEDS ORDERED: MELATONIN 3 MG TABLET PO PRN (00:16)
[2022-07-08] MEDS ORDERED: SODIUM CHLORIDE 0.9% 1,000 ML IV PRN (02:11)
[2022-07-08 04:03] LABS: Basophils % 0.3 % (0.0-0.8); Eosinophils # 0.2 10*3/uL (0.0-0.87); Eosinophils % 2.2 % (0.00-10.9); Hematocrit 23.8 VOL% (35.7-47.0); Hemoglobin 7.8 GM/DL (12.0-16.0); Immature Granulocytes % 0.8 %; Immature Granulocytes Absolute 0.09 #; Lymphocytes % 9.1 % (21.3-54.2); Mean Corpuscular HGB Conc 32.8 GM/DL (32-36); Mean Corpuscular Volume 90.8 FL (87-102); Mean Platelet Volume 9.8 FL (9.6-12.0); Monocytes # 0.8 10*3/uL (0.11-0.8); Monocytes % 7.1 % (1.7-12.7); Neutrophils % 80.5 % (38.7-73.9); Platelet Count 223 T/CUMM (130-400); Red Blood Count 2.62 MC/CUMM (3.8-5.5); Red Cell Distribution Width 15.9 % (9.3-17.3); White Blood Count 10.9 T/CUMM (4-12)
[2022-07-08 04:29] LABS: Albumin 2.6 G/DL (3.4-5.0); Bilirubin,Total 0.4 MG/DL (0.20-1.00); Calcium 8.2 MG/DL (8.5-10.1)
[2022-07-08] MEDS: INSULIN LISPRO 100 UNIT/ML SUBCUT SCH ×4 (08:40→21:26)
[2022-07-08 10:33] LABS: Hematocrit 22.8 VOL% (35.7-47.0); Hemoglobin 7.4 GM/DL (12.0-16.0)
[2022-07-08] MEDS: LOSARTAN 50 MG TABLET PO SCH (13:03)
[2022-07-08] MEDS: carvediloL 25 MG TABLET PO SCH ×2 (13:03→21:25)
[2022-07-08] MEDS: PANTOPRAZOLE 40 MG VIAL IV SCH ×2 (13:04→21:28)
[2022-07-08] MEDS: ATORVASTATIN 20 MG TABLET PO SCH (21:25)
[2022-07-09 04:27] LABS: Basophils % 0.4 % (0.0-0.8); Eosinophils # 0.2 10*3/uL (0.0-0.87); Eosinophils % 3.1 % (0.00-10.9); Hematocrit 24.1 VOL% (35.7-47.0); Hemoglobin 7.7 GM/DL (12.0-16.0); Immature Granulocytes % 0.8 %; Immature Granulocytes Absolute 0.06 #; Lymphocytes # 1.4 10*3/uL (1.4-4.0); Lymphocytes % 18.3 % (21.3-54.2); Mean Platelet Volume 9.8 FL (9.6-12.0); Monocytes # 0.6 10*3/uL (0.11-0.8); Monocytes % 8.3 % (1.7-12.7); NRBC # 0.02 10*3/uL; Neutrophils % 69.1 % (38.7-73.9); Platelet Count 209 T/CUMM (130-400); Red Blood Count 2.74 MC/CUMM (3.8-5.5); Red Cell Distribution Width 18.5 % (9.3-17.3); White Blood Count 7.4 T/CUMM (4-12)
[2022-07-09 04:48] LABS: Calcium 7.6 MG/DL (8.5-10.1); Osmolality,Calculated 285.8 MOS/KG (273-304); Potassium 3.6 MMOL/L (3.5-5.1)
[2022-07-09] MEDS: INSULIN LISPRO 100 UNIT/ML SUBCUT SCH ×4 (07:36→21:23)
[2022-07-09] MEDS ORDERED: MAGNESIUM SULF RIDER 4 GM/100 ML PREMIX IV ONE (08:16)
[2022-07-09] MEDS: PANTOPRAZOLE 40 MG VIAL IV SCH ×2 (09:10→21:23)
[2022-07-09] MEDS: carvediloL 25 MG TABLET PO SCH ×2 (09:10→21:23)
[2022-07-09] MEDS: LOSARTAN 50 MG TABLET PO SCH (09:10)
[2022-07-09] MEDS: ATORVASTATIN 20 MG TABLET PO SCH (21:23)
[2022-07-10 05:40] LABS: Basophils % 0.4 % (0.0-0.8); Eosinophils # 0.3 10*3/uL (0.0-0.87); Eosinophils % 3.4 % (0.00-10.9); Hematocrit 24.7 VOL% (35.7-47.0); Hemoglobin 7.8 GM/DL (12.0-16.0); Immature Granulocytes % 0.5 %; Immature Granulocytes Absolute 0.04 #; Lymphocytes # 0.9 10*3/uL (1.4-4.0); Lymphocytes % 11.5 % (21.3-54.2); Mean Corpuscular HGB Conc 31.6 GM/DL (32-36); Mean Corpuscular Volume 88.5 FL (87-102); Mean Platelet Volume 10.4 FL (9.6-12.0); Monocytes # 0.7 10*3/uL (0.11-0.8); Monocytes % 8.3 % (1.7-12.7); Neutrophils % 75.9 % (38.7-73.9); Platelet Count 228 T/CUMM (130-400); Red Blood Count 2.79 MC/CUMM (3.8-5.5); Red Cell Distribution Width 17.5 % (9.3-17.3)
[2022-07-10 05:59] LABS: Calcium 7.7 MG/DL (8.5-10.1); Potassium 3.5 MMOL/L (3.5-5.1)
[2022-07-10] MEDS: PANTOPRAZOLE 40 MG VIAL IV SCH ×2 (09:21→20:45)
[2022-07-10] MEDS: carvediloL 25 MG TABLET PO SCH ×2 (09:21→20:45)
[2022-07-10] MEDS: LOSARTAN 50 MG TABLET PO SCH (09:21)
[2022-07-10] MEDS: INSULIN LISPRO 100 UNIT/ML SUBCUT SCH ×4 (09:24→20:45)
[2022-07-10] MEDS ORDERED: GLUCAGON 1 MG VIAL IM PRN (12:46)
[2022-07-10] MEDS ORDERED: DEXTROSE 10% 250 ML BAG IV PRN (12:47)
[2022-07-10] MEDS: ASPIRIN EC 81 MG TABLET PO SCH (20:45)
[2022-07-10] MEDS: CHOLECALCIFEROL 5,000 UNIT TABLET PO SCH (20:45)
[2022-07-10] MEDS ORDERED: ROSUVASTATIN 20 MG TABLET PO SCH (21:00)
[2022-07-11 06:17] LABS: Basophils % 0.3 % (0.0-0.8); Eosinophils # 0.2 10*3/uL (0.0-0.87); Eosinophils % 2.5 % (0.00-10.9); Hematocrit 25.8 VOL% (35.7-47.0); Hemoglobin 8.1 GM/DL (12.0-16.0); Immature Granulocytes % 0.9 %; Immature Granulocytes Absolute 0.06 #; Lymphocytes % 15.5 % (21.3-54.2); Mean Corpuscular HGB Conc 31.4 GM/DL (32-36); Mean Corpuscular Volume 91.5 FL (87-102); Mean Platelet Volume 10.2 FL (9.6-12.0); Monocytes # 0.5 10*3/uL (0.11-0.8); Neutrophils % 72.8 % (38.7-73.9); Platelet Count 270 T/CUMM (130-400); Red Blood Count 2.82 MC/CUMM (3.8-5.5); Red Cell Distribution Width 17.2 % (9.3-17.3); White Blood Count 6.5 T/CUMM (4-12)
[2022-07-11 06:36] LABS: Osmolality,Calculated 286.8 MOS/KG (273-304); Risk Ratio 2.06; VLDL Cholesterol 15.8 MG/DL
[2022-07-11] MEDS: INSULIN LISPRO 100 UNIT/ML SUBCUT SCH ×4 (08:35→21:22)
[2022-07-11] MEDS: PANTOPRAZOLE 40 MG VIAL IV SCH ×2 (10:50→21:22)
[2022-07-11] MEDS ORDERED: DEXTROSE 50% 25 GM/50 ML VIAL IV PRN (11:49)
[2022-07-11] MEDS ORDERED: GLUCAGON 1 MG VIAL IM PRN (11:49)
[2022-07-11] MEDS: LOSARTAN 50 MG TABLET PO SCH (11:54)
[2022-07-11] MEDS: CHOLECALCIFEROL 5,000 UNIT TABLET PO SCH ×2 (11:55→21:22)
[2022-07-11] MEDS: carvediloL 25 MG TABLET PO SCH ×2 (11:55→21:21)
[2022-07-11] MEDS: ASPIRIN EC 81 MG TABLET PO SCH (11:55)
[2022-07-11] MEDS: ROSUVASTATIN 20 MG TABLET PO SCH (21:21)
[2022-07-12] MEDS: ACETAMINOPHEN 325 MG TABLET PO PRN (05:06)
[2022-07-12] MEDS: INSULIN LISPRO 100 UNIT/ML SUBCUT SCH ×4 (08:12→20:50)
[2022-07-12] MEDS: CHOLECALCIFEROL 5,000 UNIT TABLET PO SCH ×2 (09:16→20:50)
[2022-07-12] MEDS: carvediloL 25 MG TABLET PO SCH ×2 (09:16→20:49)
[2022-07-12] MEDS: ASPIRIN EC 81 MG TABLET PO SCH (09:16)
[2022-07-12] MEDS: PANTOPRAZOLE 40 MG VIAL IV SCH ×2 (09:16→20:55)
[2022-07-12] MEDS: LOSARTAN 50 MG TABLET PO SCH ×2 (09:16→20:49)
[2022-07-12] MEDS: FERRIC GLUCONATE COMPLEX 125 MG in SODIUM CHLORIDE 0.9% 100 ML IV SCH (15:49)
[2022-07-12] MEDS: ROSUVASTATIN 20 MG TABLET PO SCH (20:49)
[2022-07-13] MEDS: carvediloL 25 MG TABLET PO SCH ×2 (10:36→20:38)
[2022-07-13] MEDS: LOSARTAN 50 MG TABLET PO SCH ×2 (10:36→20:38)
[2022-07-13] MEDS: PANTOPRAZOLE 40 MG VIAL IV SCH ×2 (10:36→20:39)
[2022-07-13] MEDS: ASPIRIN EC 81 MG TABLET PO SCH (10:36)
[2022-07-13] MEDS: INSULIN LISPRO 100 UNIT/ML SUBCUT SCH ×4 (10:37→20:38)
[2022-07-13] MEDS: FERRIC GLUCONATE COMPLEX 125 MG in SODIUM CHLORIDE 0.9% 100 ML IV SCH (10:37)
[2022-07-13] MEDS: CHOLECALCIFEROL 5,000 UNIT TABLET PO SCH ×2 (15:51→20:38)
[2022-07-13] MEDS: ROSUVASTATIN 20 MG TABLET PO SCH (20:38)
[2022-07-14] MEDS: CHOLECALCIFEROL 5,000 UNIT TABLET PO SCH (10:10)
[2022-07-14] MEDS: carvediloL 25 MG TABLET PO SCH (10:10)
[2022-07-14] MEDS: ASPIRIN EC 81 MG TABLET PO SCH (10:10)
[2022-07-14] MEDS: PANTOPRAZOLE 40 MG VIAL IV SCH (10:10)
[2022-07-14] MEDS: LOSARTAN 50 MG TABLET PO SCH (10:10)
[2022-07-14] MEDS: FERRIC GLUCONATE COMPLEX 125 MG in SODIUM CHLORIDE 0.9% 100 ML IV SCH (10:11)
[2022-07-14] MEDS: INSULIN LISPRO 100 UNIT/ML SUBCUT SCH ×2 (10:18→12:41)
[2022-07-14 12:09] VITALS: BP 161/60
== END 2022-07-14 14:07 | disposition swing bed (61) | DRG 377 ==
LOC: SUATTDRO → N.ED 03:33 → N.EDINP 05:57 → SUATTDRO 05:57 → N.EDINP 08:30 → N.TELES 08:36
PROVIDERS: ADMIT Internal Medicine; ATTEND Internal Medicine